=== PATIENT | female | born 1995 | race Caucasian/White ===

== ENCOUNTER 2017-11-22 08:01 | Inpatient (IN) | payer OTHER ==
[~2017-11-22 08:01] MED LIST: ETOMIDATE 20 MG INJ; MIDAZOLAM 1 MG/ML 2 ML INJ; SUCCINYLCHOLINE CHLORIDE 100 MG/5 ML SYG IV
[2017-11-22] MEDS: PROPOFOL 100 ML IV ×5 (08:09→20:01)
[2017-11-22] MEDS: LACTATED RINGER'S 1,000 ML IV ×2 (08:28→14:59)
[2017-11-22] MEDS: SOD CHLORIDE 0.9% 2,000 ML IV (08:29)
[2017-11-22] MEDS: HYDROmorphONE 0.5 MG/0.5 ML SYG IV ×2 (08:34→11:28)
[2017-11-22] MEDS: ETOMIDATE 20 MG INJ IV (08:34)
[2017-11-22] MEDS: SUCCINYLCHOLINE CHLORIDE 100 MG/5 ML SYG IV (08:34)
[2017-11-22] MEDS: MIDAZOLAM 1 MG/ML 5 ML INJ IV (08:36)
[2017-11-22] MEDS ORDERED: NORepinephrine 8MG/250 ML (PMX 250 ML IV (08:58)
[2017-11-22 08:59] LABS: AADO2 Venous 548.4 mmHg; MODE VENT - AC; MetHgb Venous 0.6 %; Sample Type Blood venous; Site OTHER; Venous COHb 0.3 %; Venous Fraction OxyHgb 96.4 %; Venous Oxygen Sat 97.3 mmHG (55.0-75.0)
[2017-11-22 09:01] LABS: ABNORMAL IP MESSAGE 1; HEMATOCRIT 38.4 % (37.0-47.0); HEMOGLOBIN 12.1 g/dl (12.0-16.0); MEAN CORPUSCULAR HEMOGLOBIN 31.5 pg (29.0-33.0); MEAN CORPUSCULAR HGB CONC 31.5 g/dl (32.0-37.0); PLATELET COUNT 370 10^3/UL (140-415); RED BLOOD COUNT 3.84 10^6/ul (4.20-5.40); RED CELL DISTRIBUTION WIDTH 12.4 % (11.5-14.5)
[2017-11-22 09:17] LABS: ADD MAN DIFF? YES; POSITIVE DIFF @See below
[2017-11-22] MEDS: CEFTRIAXONE 1 GM/50 ML (PMX) 50 ML IVPB (09:33)
[2017-11-22] MEDS: MIDAZOLAM (DRIP) 50 mg/50 mL 50 ML IV ×3 (09:33→18:44)
[2017-11-22 09:34] LABS: LACTIC ACID 2.7 mmol/L (0.5-2.0)
[2017-11-22 09:47] LABS: INR 1.37; PROTIME 17.1 Sec (11.9-14.9); PT RATIO 1.3
[2017-11-22 09:48] LABS: PARTIAL THROMBOPLASTIN TIME 30.1 Sec (25.0-35.0)
[2017-11-22 09:53] LABS: ANISOCYTOSIS 1+ (0-0); BAND NEUTROPHILS #M 3.8 10^3/ul (0.0-0.6); BAND NEUTROPHILS % (M) 9 % (0-4); LYMPHOCYTES #M 3.8 10^3/ul (0.8-2.9); LYMPHOCYTES % (M) 9 % (15-51); MICROCYTOSIS 1+ (0-0); MONOCYTE #M 4.3 10^3/ul (0.3-0.9); MONOCYTES % (M) 10 % (0-11); PLATELET ESTIMATE NORMAL; POLYCHROMASIA 3+ (0-0); SEG NEUT #M 32.6 10^3/ul (1.6-7.5); SEGMENTED NEUTROPHILS (M) % 72 % (39-77); SMUDGE%M 2 % (0-0)
[2017-11-22 09:57] LABS: ADD UMIC YES; UR AMORPHOUS CRYSTAL FEW /HPF (NONE SEEN); UR ASCORBIC ACID NEGATIVE (NEGATIVE); UR BACTERIA FEW /HPF (NONE SEEN); UR BILIRUBIN (Dip) NEGATIVE (NEGATIVE); UR BLOOD (Dip) 2+ mg/dL (NEGATIVE); UR CLARITY SLIGHTLY CLOUDY (CLEAR); UR COLOR YELLOW (YELLOW); UR GLUCOSE (Dip) 3+ mg/dL (NEGATIVE); UR KETONES (Dip) 1+ mg/dL (NEGATIVE); UR LEUKOCYTE ESTERASE (Dip) NEGATIVE Leu/ul (NEGATIVE); UR NITRITE (Dip) NEGATIVE (NEGATIVE); UR RBC 0 /HPF (0-5); UR SPECIFIC GRAVITY (Dip) 1.018 (1.003-1.030); UR TOTAL PROTEIN (Dip) 1+ mg/dl (NEGATIVE); UR UROBILINOGEN (Dip) NEGATIVE (NEGATIVE); UR WBC 2 /HPF (0-5)
[2017-11-22] MEDS: NORepinephrine 8MG/250 ML (PMX 250 ML IV (09:58)
[2017-11-22] MEDS ORDERED: NA BICARBONATE 8.4% 50 ML SYG (10:44)
[2017-11-22] MEDS: ALBUTEROL 0.083% (NEB) 2.5 MG/3 ML AMP HHN (10:50)
[2017-11-22] MEDS: NA BICARBONATE 8.4% 50 ML SYG IV ×2 (10:53→16:41)
[2017-11-22] MEDS: CA CHLORIDE 10% 10 ML SYRINGE IV (10:53)
[2017-11-22 11:18] LABS: LACTIC ACID 1.8 mmol/L (0.5-2.0)
[2017-11-22] MEDS: INSULIN HUMAN REGULAR 100 UNIT in SOD CHLORIDE 0.9% 99 ML IV ×3 (11:18→18:25)
[2017-11-22 11:27] LABS: ANION GAP 42 (8-16); SODIUM 135 mmol/L (135-144)
[2017-11-22 11:29] LABS: ALANINE AMINOTRANSFERASE 29 IU/L (13-69); ALBUMIN 3.9 g/dl (3.3-4.9); ALKALINE PHOSPHATASE 136 IU/L (42-121); ASPARTATE AMINO TRANSFERASE 26 IU/L (15-46); BLOOD UREA NITROGEN 63 mg/dl (7-20); CARBON DIOXIDE < 5 mmol/L (21-31); CHLORIDE 97 mmol/L (97-110); GLUCOSE > 1250 mg/dl (70-220); POTASSIUM 9.2 mmol/L (3.5-5.1); TOTAL PROTEIN 6.5 g/dl (6.1-8.1)
[2017-11-22 11:30] LABS: CALCIUM 7.6 mg/dl (8.4-10.2)
[2017-11-22] MEDS ORDERED: DEXTROSE 50% 50 ML SYRINGE IV ×6 (11:30→14:00)
[2017-11-22] MEDS: ACCU-CHEK XX ×13 (11:44→23:20)
[2017-11-22 11:54] LABS: CREATININE 4.34 mg/dl (0.44-1.00)
[2017-11-22] MEDS ORDERED: SOD CHLORIDE 0.9% 1,000 ML IV (12:00)
[2017-11-22] MEDS ORDERED: POTASSIUM CHLORIDE 50 ML IVPB (12:00)
[2017-11-22] MEDS: ASPIRIN 300 MG SUPP PR (12:04)
[2017-11-22] MEDS: SOD CHLORIDE 0.45% 1,000 ML IV ×6 (12:04→23:30)
[2017-11-22 12:16] LABS: HEMOGLOBIN A1C 9.5 % (0-5.9)
[2017-11-22] MEDS: SOD CHLORIDE 0.9% IVPB (12:17)
[2017-11-22] MEDS: FOMEPIZOLE IVPB (12:17)
[2017-11-22 12:24] LABS: PHOSPHORUS 12.2 mg/dl (2.5-4.9)
[2017-11-22 12:38] LABS: OSMOLALITY 400 mOsm/kg (280-295)
[2017-11-22 12:52] LABS: GLUCOSE, FASTING 1243 mg/dl (70-110)
[2017-11-22 13:00] LABS: AADO2 Mixed Venous 614.8 mmHg; Allen Test ACCEPTAB; MODE VENT - AC; MetHgb Mixed Venous 0.6 %; Mixed Venous Base Excess -30.6 mmol/L; Mixed Venous COHb 0.3 %; Mixed Venous Fraction OxyHgb 89.1 %; Mixed Venous Oxygen Sat 89.9 mmHG (65.0-75.0); Mixed Venous Total Hemglobin 13.3 g/dl; Sample Type Blood venous; Site OTHER
[2017-11-22 13:12] LABS: BLOOD UREA NITROGEN 64 mg/dl (7-20); CALCIUM 9.4 mg/dl (8.4-10.2); CHLORIDE 99 mmol/L (97-110); SODIUM 140 mmol/L (135-144)
[2017-11-22 13:23] LABS: BLOOD UREA NITROGEN 63 mg/dl (7-20); CALCIUM 9.5 mg/dl (8.4-10.2); CHLORIDE 102 mmol/L (97-110); POTASSIUM 5.1 mmol/L (3.5-5.1); SODIUM 142 mmol/L (135-144)
[2017-11-22 13:31] LABS: LACTIC ACID 2.5 mmol/L (0.5-2.0)
[2017-11-22 13:37] LABS: ANION GAP 40 (8-16); CARBON DIOXIDE < 5 mmol/L (21-31); CREATININE 3.99 mg/dl (0.44-1.00); GLUCOSE 1177 mg/dl (70-220)
[2017-11-22] MEDS ORDERED: INSULIN HUMAN REGULAR 100 UNIT in SOD CHLORIDE 0.9% 99 ML IV (14:00)
[2017-11-22] MEDS ORDERED: ACCU-CHEK XX (14:00)
[2017-11-22 14:16] LABS: ANION GAP 42 (8-16)
[2017-11-22 14:17] LABS: CREATININE 4.05 mg/dl (0.44-1.00)
[2017-11-22 14:19] LABS: CARBON DIOXIDE < 5 mmol/L (21-31); GLUCOSE 1233 mg/dl (70-220)
[2017-11-22] MEDS ORDERED: SODIUM BICARBONATE (IV ADD) 100 MEQ in DEXTROSE 5% 1,000 ML IV (14:30)
[2017-11-22] MEDS: SOD CHLORIDE 0.9% 1,000 ML IV ×4 (14:31→18:29)
[2017-11-22 16:12] LABS: Allen Test ACCEPTAB; Arterial Blood Gas Oxygen Sat 99.3 mmHG (95.0-98.0); Arterial COHb 0.3 % (0.0-3.0); Arterial Fraction of Oxyhgb 98.4 % (93.0-99.0); Arterial HCO3 4.1 mmol/L (22.0-26.0); Arterial MetHb 0.6 % (0.0-1.5); Arterial Total Hemglobin 12.1 g/dl (12.0-18.0); Arterial pCO2 15.8 mmhg (35-45); MODE VENT - AC; Site Right Radial
[2017-11-22 16:25] LABS: BLOOD UREA NITROGEN 59 mg/dl (7-20); CHLORIDE 110 mmol/L (97-110); CREATININE 4.33 mg/dl (0.44-1.00); POTASSIUM 3.6 mmol/L (3.5-5.1); SODIUM 146 mmol/L (135-144)
[2017-11-22 16:29] LABS: HEMOGLOBIN A1C 9.7 % (0-5.9)
[2017-11-22 16:35] LABS: ANION GAP 35 (8-16)
[2017-11-22 16:38] LABS: CARBON DIOXIDE < 5 mmol/L (21-31)
[2017-11-22 16:39] LABS: GLUCOSE 755 mg/dl (70-220)
[2017-11-22] MEDS ORDERED: SODIUM BICARBONATE (IV ADD) 100 MEQ in SOD CHLORIDE 0.45% 1,000 ML IV (17:30)
[2017-11-22 18:43] LABS: ANION GAP 33 (8-16); BLOOD UREA NITROGEN 54 mg/dl (7-20); CALCIUM 7.9 mg/dl (8.4-10.2); CHLORIDE 114 mmol/L (97-110); CREATININE 3.39 mg/dl (0.44-1.00); SODIUM 153 mmol/L (135-144)
[2017-11-22 18:59] LABS: POTASSIUM 2.8 mmol/L (3.5-5.1)
[2017-11-22 19:00] LABS: CARBON DIOXIDE 9 mmol/L (21-31)
[2017-11-22 19:01] LABS: GLUCOSE 516 mg/dl (70-220)
[2017-11-22] MEDS: SODIUM BICARBONATE (IV ADD) 100 MEQ in SOD CHLORIDE 0.45% 1,000 ML IV (19:44)
[2017-11-22] MEDS ORDERED: POTASSIUM CHLORIDE 250 ML IVPB (20:00)
[2017-11-22 20:28] LABS: AADO2 Arterial 77.1 mmHg (7.0-24.0); Allen Test ACCEPTAB; Arterial Base Excess -14.9 mmol/L (-3.0-3); Arterial Blood Gas Oxygen Sat 98.6 mmHG (95.0-98.0); Arterial COHb 0.2 % (0.0-3.0); Arterial Fraction of Oxyhgb 97.8 % (93.0-99.0); Arterial HCO3 10.4 mmol/L (22.0-26.0); Arterial MetHb 0.6 % (0.0-1.5); Arterial Total Hemglobin 11.3 g/dl (12.0-18.0); Arterial pCO2 23.7 mmhg (35-45); MODE VENT - AC; Site Left Radial
[2017-11-22 20:56] LABS: ANION GAP 26 (8-16); BLOOD UREA NITROGEN 51 mg/dl (7-20); CALCIUM 7.9 mg/dl (8.4-10.2); CARBON DIOXIDE 13 mmol/L (21-31); CHLORIDE 119 mmol/L (97-110); GLUCOSE 309 mg/dl (70-220); SODIUM 155 mmol/L (135-144)
[2017-11-22] MEDS: POTASSIUM CHLORIDE 50 ML IVPB ×3 (21:00→23:20)
[2017-11-22] MEDS: FAMOTIDINE 20 MG INJ IV (21:00)
[2017-11-22 21:04] LABS: POTASSIUM 2.7 mmol/L (3.5-5.1)
[2017-11-22 22:41] LABS: ANION GAP 27 (8-16); BLOOD UREA NITROGEN 49 mg/dl (7-20); CARBON DIOXIDE 11 mmol/L (21-31); CHLORIDE 119 mmol/L (97-110); CREATININE 2.59 mg/dl (0.44-1.00); GLUCOSE 210 mg/dl (70-220); SODIUM 154 mmol/L (135-144)
[2017-11-22 22:56] LABS: POTASSIUM 2.9 mmol/L (3.5-5.1)
[2017-11-23 00:37] LABS: ANION GAP 19 (8-16); BLOOD UREA NITROGEN 49 mg/dl (7-20); CALCIUM 8.3 mg/dl (8.4-10.2); CARBON DIOXIDE 18 mmol/L (21-31); CHLORIDE 120 mmol/L (97-110); CREATININE 2.46 mg/dl (0.44-1.00); GLUCOSE 133 mg/dl (70-220); POTASSIUM 3.1 mmol/L (3.5-5.1); SODIUM 154 mmol/L (135-144)
[2017-11-23 00:52] LABS: TROPONIN-I 0.304 ng/ml (0.00-0.12)
[2017-11-23] MEDS: ACCU-CHEK XX ×24 (01:00→23:00)
[2017-11-23] MEDS: SOD CHLORIDE 0.45% 1,000 ML IV ×4 (01:30→07:30)
[2017-11-23] MEDS ORDERED: VANCOMYCIN IV PER PHARMACY XX (02:00)
[2017-11-23] MEDS: PROPOFOL 100 ML IV ×2 (02:00→20:16)
[2017-11-23 02:20] LABS: LACTIC ACID 3.1 mmol/L (0.5-2.0)
[2017-11-23 02:20] LABS: ANION GAP 18 (8-16); BLOOD UREA NITROGEN 49 mg/dl (7-20); CARBON DIOXIDE 19 mmol/L (21-31); CHLORIDE 120 mmol/L (97-110); CREATININE 2.32 mg/dl (0.44-1.00); GLUCOSE 105 mg/dl (70-220); SODIUM 154 mmol/L (135-144)
[2017-11-23 02:21] LABS: POTASSIUM 2.8 mmol/L (3.5-5.1)
[2017-11-23] MEDS: INSULIN HUMAN REGULAR 100 UNIT in SOD CHLORIDE 0.9% 99 ML IV ×2 (02:41→16:07)
[2017-11-23] MEDS: MIDAZOLAM (DRIP) 50 mg/50 mL 50 ML IV ×2 (02:43→05:19)
[2017-11-23] MEDS: SOD CHLORIDE 0.9% 250 ML IV (03:00)
[2017-11-23] MEDS: PIPER-TAZO 3.375 GM IV (PMX) 100 ML IVPB ×3 (03:23→18:25)
[2017-11-23] MEDS: POTASSIUM CHLORIDE 30 MEQ in SOD CHLORIDE 0.9% 250 ML IV (03:24)
[2017-11-23] MEDS: VANCOMYCIN 1.25 GM in SOD CHLORIDE 0.9% 250 ML IVPB (03:25)
[2017-11-23] MEDS: ACETAMINOPHEN 650 MG SUPP PR (04:02)
[2017-11-23 04:32] LABS: ADD MAN DIFF? NO
[2017-11-23 04:33] LABS: ABNORMAL IP MESSAGE 1; BASOPHILS % 0.2 % (0.0-2.0); EOSINOPHILS % 0.1 % (0.0-7.0); HEMATOCRIT 25.3 % (37.0-47.0); HEMOGLOBIN 9.4 g/dl (12.0-16.0); LYMPHOCYTES # 0.9 10^3/ul (0.8-2.9); MEAN CORPUSCULAR HGB CONC 37.2 g/dl (32.0-37.0); MEAN CORPUSCULAR VOLUME 83.5 fl (82.0-101.0); MEAN PLATELET VOLUME 10.9 fl (7.4-10.4); MONOCYTE # 1.5 10^3/ul (0.3-0.9); MONOCYTES % 11.9 % (0.0-11.0); NEUTROPHILS % 78.6 % (39.0-77.0); NUCLEATED RED BLOOD CELLS% 0.3 /100WBC (0.0-0.0); PLATELET COUNT 192 10^3/UL (140-415); RED BLOOD COUNT 3.03 10^6/ul (4.20-5.40); RED CELL DISTRIBUTION WIDTH 11.7 % (11.5-14.5)
[2017-11-23 04:33] LABS: WHITE BLOOD COUNT 12.7 10^3/ul (4.8-10.8)
[2017-11-23 04:34] LABS: POSITIVE DIFF @See below
[2017-11-23 04:50] LABS: CREATINE KINASE 503 IU/L (23-200)
[2017-11-23 04:52] LABS: ANION GAP 19 (8-16); BLOOD UREA NITROGEN 47 mg/dl (7-20); CARBON DIOXIDE 18 mmol/L (21-31); CHLORIDE 121 mmol/L (97-110); CREATININE 2.15 mg/dl (0.44-1.00); GLUCOSE 91 mg/dl (70-220); MAGNESIUM 1.6 mg/dl (1.7-2.5); POTASSIUM 3.1 mmol/L (3.5-5.1); SODIUM 155 mmol/L (135-144)
[2017-11-23 04:54] LABS: PHOSPHORUS < 0.5 mg/dl (2.5-4.9)
[2017-11-23 05:04] LABS: CK INDEX 1.5; CK-MB 7.72 ng/ml (0.0-2.4)
[2017-11-23 05:08] LABS: TROPONIN-I 0.421 ng/ml (0.00-0.12)
[2017-11-23] MEDS: SODIUM BICARBONATE (IV ADD) 100 MEQ in SOD CHLORIDE 0.45% 1,000 ML IV (05:34)
[2017-11-23 06:52] LABS: LACTIC ACID 1.4 mmol/L (0.5-2.0)
[2017-11-23 06:54] LABS: ANION GAP 22 (8-16); BLOOD UREA NITROGEN 47 mg/dl (7-20); CALCIUM 7.6 mg/dl (8.4-10.2); CARBON DIOXIDE 17 mmol/L (21-31); CHLORIDE 121 mmol/L (97-110); CREATININE 2.32 mg/dl (0.44-1.00); GLUCOSE 149 mg/dl (70-220); POTASSIUM 3.9 mmol/L (3.5-5.1); SODIUM 156 mmol/L (135-144)
[2017-11-23 07:06] LABS: TROPONIN-I 0.452 ng/ml (0.00-0.12)
[2017-11-23] MEDS: POTASSIUM PHOSPHATE 30 MEQ in SOD CHLORIDE 0.9% 250 ML IVPB ×2 (07:44→13:05)
[2017-11-23 08:02] LABS: AADO2 Arterial 27.9 mmHg (7.0-24.0); Allen Test ACCEPTAB; Arterial Base Excess -7.1 mmol/L (-3.0-3); Arterial Blood Gas Oxygen Sat 98.5 mmHG (95.0-98.0); Arterial COHb 0.3 % (0.0-3.0); Arterial Fraction of Oxyhgb 97.7 % (93.0-99.0); Arterial HCO3 15.1 mmol/L (22.0-26.0); Arterial MetHb 0.5 % (0.0-1.5); Arterial Total Hemglobin 11.8 g/dl (12.0-18.0); Arterial pCO2 22.3 mmhg (35-45); MODE VENT - AC; Site Right Radial
[2017-11-23] MEDS: ENOXAPARIN 40 MG/0.4 ML SYG SC (09:16)
[2017-11-23] MEDS ORDERED: CEFTRIAXONE 1 GM/50 ML (PMX) 50 ML IVPB (09:30)
[2017-11-23 09:56] LABS: ANION GAP 20 (8-16); BLOOD UREA NITROGEN 44 mg/dl (7-20); CALCIUM 7.5 mg/dl (8.4-10.2); CARBON DIOXIDE 17 mmol/L (21-31); CHLORIDE 119 mmol/L (97-110); CREATININE 2.28 mg/dl (0.44-1.00); GLUCOSE 182 mg/dl (70-220); POTASSIUM 3.7 mmol/L (3.5-5.1); SODIUM 152 mmol/L (135-144)
[2017-11-23] MEDS: SODIUM BICARBONATE (IV ADD) 100 MEQ in DEXTROSE 5% 1,000 ML IV (10:50)
[2017-11-23] MEDS: DEXTROSE 5%-0.225% NACL 1,000 ML IV ×2 (10:51→16:40)
[2017-11-23 12:25] LABS: ANION GAP 18 (8-16); BLOOD UREA NITROGEN 43 mg/dl (7-20); CALCIUM 7.2 mg/dl (8.4-10.2); CARBON DIOXIDE 20 mmol/L (21-31); CHLORIDE 118 mmol/L (97-110); CREATININE 2.26 mg/dl (0.44-1.00); GLUCOSE 194 mg/dl (70-220); POTASSIUM 3.5 mmol/L (3.5-5.1); SODIUM 152 mmol/L (135-144)
[2017-11-23 12:37] LABS: TROPONIN-I 0.261 ng/ml (0.00-0.12)
[2017-11-23 12:45] LABS: CK INDEX 0.3; CREATINE KINASE 10858 IU/L (23-200)
[2017-11-23 14:38] LABS: CREATININE, RANDOM URINE 45 mg/dL (20-320); MICROALBUMIN 13.7 mg/dL; MICROALBUMIN/CREATININE RATIO 304 (<30)
[2017-11-23 15:07] LABS: ANION GAP 17 (8-16); BLOOD UREA NITROGEN 41 mg/dl (7-20); CALCIUM 7.3 mg/dl (8.4-10.2); CARBON DIOXIDE 20 mmol/L (21-31); CHLORIDE 116 mmol/L (97-110); CREATININE 2.28 mg/dl (0.44-1.00); GLUCOSE 246 mg/dl (70-220); POTASSIUM 3.4 mmol/L (3.5-5.1); SODIUM 150 mmol/L (135-144)
[2017-11-23] MEDS: VANCOMYCIN 500MG/NS (PMX) 100 ML IVPB (16:38)
[2017-11-23 17:27] LABS: ANION GAP 17 (8-16); BLOOD UREA NITROGEN 38 mg/dl (7-20); CALCIUM 6.9 mg/dl (8.4-10.2); CARBON DIOXIDE 19 mmol/L (21-31); CHLORIDE 117 mmol/L (97-110); CREATININE 2.16 mg/dl (0.44-1.00); GLUCOSE 219 mg/dl (70-220); POTASSIUM 3.4 mmol/L (3.5-5.1); SODIUM 150 mmol/L (135-144)
[2017-11-23] MEDS: FAMOTIDINE 20 MG INJ IV (20:22)
[2017-11-23] MEDS: POTASSIUM CHLORIDE 50 ML IVPB (21:33)
[2017-11-23 22:18] LABS: ANION GAP 15 (8-16); BLOOD UREA NITROGEN 35 mg/dl (7-20); CALCIUM 7.1 mg/dl (8.4-10.2); CARBON DIOXIDE 21 mmol/L (21-31); CHLORIDE 116 mmol/L (97-110); CREATININE 2.16 mg/dl (0.44-1.00); GLUCOSE 229 mg/dl (70-220); SODIUM 149 mmol/L (135-144)
[2017-11-23] MEDS: POTASSIUM CHLORIDE 20 MEQ /SW 100 ML IVPB (22:57)
[2017-11-24] MEDS: ACCU-CHEK XX ×25 (01:00→23:20)
[2017-11-24] MEDS: ACETAMINOPHEN 650 MG SUPP PR (01:03)
[2017-11-24] MEDS: PROPOFOL 100 ML IV ×3 (01:03→23:30)
[2017-11-24] MEDS: PIPER-TAZO 3.375 GM IV (PMX) 100 ML IVPB ×3 (01:05→18:12)
[2017-11-24 01:23] LABS: ANION GAP 13 (8-16); BLOOD UREA NITROGEN 31 mg/dl (7-20); CALCIUM 7.2 mg/dl (8.4-10.2); CARBON DIOXIDE 21 mmol/L (21-31); CHLORIDE 117 mmol/L (97-110); GLUCOSE 249 mg/dl (70-220); POTASSIUM 3.1 mmol/L (3.5-5.1); SODIUM 148 mmol/L (135-144)
[2017-11-24] MEDS ORDERED: VANCOMYCIN 1 GM 250 ML IVPB (03:00)
[2017-11-24] MEDS: DEXTROSE 5%-0.225% NACL 1,000 ML IV ×4 (03:17→23:21)
[2017-11-24] MEDS: VANCOMYCIN 500MG/NS (PMX) 100 ML IVPB ×2 (03:18→16:00)
[2017-11-24] MEDS: POTASSIUM CHLORIDE 100 ML IVPB ×2 (03:32→17:08)
[2017-11-24] MEDS: POTASSIUM CHLORIDE 10 MEQ in SOD CHLORIDE 0.9% 50 ML IV (05:22)
[2017-11-24 08:20] LABS: ADD MAN DIFF? NO
[2017-11-24 08:24] LABS: BASOPHILS % 0.3 % (0.0-2.0); EOSINOPHILS % 0.1 % (0.0-7.0); HEMATOCRIT 23.5 % (37.0-47.0); HEMOGLOBIN 8.8 g/dl (12.0-16.0); LYMPHOCYTES # 1.6 10^3/ul (0.8-2.9); LYMPHOCYTES % 13.8 % (15.0-51.0); MEAN CORPUSCULAR HEMOGLOBIN 32.4 pg (29.0-33.0); MEAN CORPUSCULAR HGB CONC 37.4 g/dl (32.0-37.0); MEAN CORPUSCULAR VOLUME 86.4 fl (82.0-101.0); MEAN PLATELET VOLUME 11.3 fl (7.4-10.4); MONOCYTE # 0.6 10^3/ul (0.3-0.9); MONOCYTES % 5.2 % (0.0-11.0); NEUTROPHIL # 9.5 10^3/ul (1.6-7.5); NEUTROPHILS % 79.9 % (39.0-77.0); PLATELET COUNT 137 10^3/UL (140-415); RED BLOOD COUNT 2.72 10^6/ul (4.20-5.40); RED CELL DISTRIBUTION WIDTH 12.7 % (11.5-14.5)
[2017-11-24 08:24] LABS: WHITE BLOOD COUNT 11.9 10^3/ul (4.8-10.8)
[2017-11-24 08:58] LABS: ANION GAP 15 (8-16); BLOOD UREA NITROGEN 28 mg/dl (7-20); CALCIUM 7.1 mg/dl (8.4-10.2); CARBON DIOXIDE 21 mmol/L (21-31); CHLORIDE 118 mmol/L (97-110); CREATININE 1.92 mg/dl (0.44-1.00); GLUCOSE 256 mg/dl (70-220); POTASSIUM 3.5 mmol/L (3.5-5.1); SODIUM 150 mmol/L (135-144)
[2017-11-24 09:01] LABS: LACTIC ACID 2.3 mmol/L (0.5-2.0)
[2017-11-24 09:15] LABS: TROPONIN-I 0.205 ng/ml (0.00-0.12)
[2017-11-24] MEDS: INSULIN HUMAN REGULAR 100 UNIT in SOD CHLORIDE 0.9% 99 ML IV (09:30)
[2017-11-24] MEDS ORDERED: DEXTROSE 50% 50 ML SYRINGE IV ×2 (09:30)
[2017-11-24] MEDS ORDERED: FAMOTIDINE 20 MG INJ IV (09:30)
[2017-11-24 09:37] LABS: CK INDEX 0.1; CREATINE KINASE 19665 IU/L (23-200)
[2017-11-24] MEDS: ENOXAPARIN 40 MG/0.4 ML SYG SC (09:53)
[2017-11-24 09:58] LABS: IRON 89 ug/dl (35-150)
[2017-11-24 10:07] LABS: % IRON SATURATION 39 % SAT (22-52); TOTAL IRON BINDING CAPACITY 229 ug/dl (241-421)
[2017-11-24 14:47] LABS: AMPHETAMINES (1000 ng/mL SCRN) NEGATIVE; COCAINE METABOLITES NEGATIVE
[2017-11-24 15:58] LABS: VANCOMYCIN,TROUGH 7.5 ug/ml (10.0-20.0)
[2017-11-24] MEDS: VANCOMYCIN 1 GM 250 ML IVPB (16:30)
[2017-11-24] MEDS: FAMOTIDINE 20 MG INJ IV (20:42)
[2017-11-25] MEDS: ACCU-CHEK XX ×20 (01:01→21:46)
[2017-11-25] MEDS: PIPER-TAZO 3.375 GM IV (PMX) 100 ML IVPB ×2 (02:04→10:39)
[2017-11-25] MEDS: VANCOMYCIN 1 GM 250 ML IVPB (04:54)
[2017-11-25 05:51] LABS: ADD MAN DIFF? NO
[2017-11-25 05:55] LABS: BASOPHILS % 0.2 % (0.0-2.0); EOSINOPHILS % 0.1 % (0.0-7.0); HEMATOCRIT 21.4 % (37.0-47.0); HEMOGLOBIN 7.7 g/dl (12.0-16.0); LYMPHOCYTES # 2.1 10^3/ul (0.8-2.9); LYMPHOCYTES % 18.9 % (15.0-51.0); MEAN CORPUSCULAR HEMOGLOBIN 31.7 pg (29.0-33.0); MEAN CORPUSCULAR VOLUME 88.1 fl (82.0-101.0); MEAN PLATELET VOLUME 10.4 fl (7.4-10.4); MONOCYTE # 0.4 10^3/ul (0.3-0.9); MONOCYTES % 3.8 % (0.0-11.0); NEUTROPHIL # 8.7 10^3/ul (1.6-7.5); NEUTROPHILS % 76.6 % (39.0-77.0); PLATELET COUNT 114 10^3/UL (140-415); RED BLOOD COUNT 2.43 10^6/ul (4.20-5.40)
[2017-11-25 05:55] LABS: WHITE BLOOD COUNT 11.3 10^3/ul (4.8-10.8)
[2017-11-25 05:58] LABS: POSITIVE DIFF @See below
[2017-11-25 06:16] LABS: ANION GAP 12 (8-16); BLOOD UREA NITROGEN 16 mg/dl (7-20); CALCIUM 7.2 mg/dl (8.4-10.2); CARBON DIOXIDE 24 mmol/L (21-31); CHLORIDE 119 mmol/L (97-110); CREATININE 1.43 mg/dl (0.44-1.00); GLUCOSE 107 mg/dl (70-220); MAGNESIUM 1.6 mg/dl (1.7-2.5); PHOSPHORUS 1.5 mg/dl (2.5-4.9); SODIUM 153 mmol/L (135-144)
[2017-11-25 06:20] LABS: POTASSIUM 2.4 mmol/L (3.5-5.1)
[2017-11-25] MEDS: INSULIN HUMAN REGULAR 100 UNIT in SOD CHLORIDE 0.9% 99 ML IV (06:45)
[2017-11-25] MEDS: MAGNESIUM SULFATE 4 GM/100 ML 100 ML IVPB (08:00)
[2017-11-25] MEDS: DEXTROSE 5%-0.225% NACL 1,000 ML IV ×3 (08:55→20:42)
[2017-11-25] MEDS: POTASSIUM CHLORIDE 50 ML IVPB ×4 (09:30→13:50)
[2017-11-25] MEDS: FAMOTIDINE 20 MG INJ IV (10:38)
[2017-11-25] MEDS: ENOXAPARIN 40 MG/0.4 ML SYG SC (10:49)
[2017-11-25] MEDS: PROPOFOL 100 ML IV (14:00)
[2017-11-25] MEDS ORDERED: GLUCOSE GEL 15 GRAM TUBE BUCCAL (16:30)
[2017-11-25] MEDS ORDERED: GLUCOSE GEL 15 GRAM TUBE PO ×2 (16:30)
[2017-11-25] MEDS ORDERED: GLUCAGON 1 MG INJ IM (16:30)
[2017-11-25] MEDS ORDERED: DEXTROSE 50% 50 ML SYRINGE IV ×2 (16:30)
[2017-11-25] MEDS: INSULIN GLARGINE [LANtus] 3 ML PEN SC (18:02)
[2017-11-25] MEDS: INSULIN ASPART [NOVOLOG] 3 ML PEN SC (18:02)
== END 2017-11-25 21:25 | disposition short-term general hospital (02) | DRG 637 ==
LOC: E/R 08:01 → ICU 11:16
PROC: 5A1945Z Respiratory Ventilation, 24-96 Consecutive Hours (ICD-10-PCS; principal; 2017-11-22)
PROC: 0BH17EZ Insertion of Endotracheal Airway into Trachea, Via Natural or Artificial Opening (ICD-10-PCS; 2017-11-22)
PROC: 06HM33Z Insertion of Infusion Device into Right Femoral Vein, Percutaneous Approach (ICD-10-PCS; 2017-11-22)
DX: E10.10 Type 1 diabetes mellitus with ketoacidosis without coma (principal); R65.11 Systemic inflammatory response syndrome (SIRS) of non-infectious origin with acute organ dysfunction; G93.40 Encephalopathy, unspecified; J96.01 Acute respiratory failure with hypoxia; N17.9 Acute kidney failure, unspecified; E87.0 Hyperosmolality and hypernatremia; D69.6 Thrombocytopenia, unspecified; I95.9 Hypotension, unspecified; E87.6 Hypokalemia; E10.22 Type 1 diabetes mellitus with diabetic chronic kidney disease; E86.0 Dehydration; N18.9 Chronic kidney disease, unspecified; D64.9 Anemia, unspecified; Z91.14 Patient's other noncompliance with medication regimen
CPT/HCPCS: 31500; 36415; 36592; 36600; 70450; 71045; 74018; 76937; 80048; 80053; 80202; 81001; 81025; 82043; 82550; 82553; 82728; 82803; 82947; 82962; 83036; 83540; 83605; 83735; 83930; 84100; 84484; 85025; 85610; 85730; 87040; 87070; 87086; 89220; 93005; 94002; 94003; 94664; 94770; 96374; 96375; 99291-25; G0431